=== PATIENT | female | born 1960 | race Caucasian/White ===

== ENCOUNTER 2017-08-03 14:33 | Emergency (ER) | payer OTHER ==
[2017-08-03 14:34] VITALS: BMI 32.3
[2017-08-03] MEDS ORDERED: Sodium Chloride 0.9% 1,000 ML IV ONE (15:53)
[2017-08-03] MEDS ORDERED: Sodium Chloride 0.9% 1,000 ML ONE (16:13)
[2017-08-03 16:34] LABS: BASO % 0.4 % (0.0-2.0); EOS # 0.1 K/uL (0.0-0.7); EOS % 0.6 % (0.0-4.0); HEMATOCRIT 42.4 % (34.0-47.0); LYMPH # 1.8 K/uL (1.0-4.3); LYMPH % 20.5 % (20.0-40.0); MEAN CELL VOLUME 77.1 fL (81.0-99.0); MEAN CORPUSCULAR HEMOGLOBIN 25.2 pg (27.0-31.0); MEAN CORPUSCULAR HGB CONC 32.6 g/dL (33.0-37.0); MEAN PLATELET VOLUME 8.2 fL (7.2-11.7); MONO # 0.7 K/uL (0.0-0.8); MONO % 8.1 % (0.0-10.0); RED CELL DISTRIBUTION WIDTH 15.1 % (11.5-14.5); WHITE BLOOD COUNT 8.8 K/uL (4.8-10.8)
[2017-08-03 16:39] LABS: CHLORIDE 100 mmol/L (98-107)
[2017-08-03 16:40] LABS: POTASSIUM 3.2 mmol/L (3.6-5.2); SODIUM 137 mmol/L (132-148)
[2017-08-03 16:43] LABS: ALB/GLOB RATIO 1.3 (1.0-2.1); ALKALINE PHOSPHATASE 93 U/L (38-126); ALT/SGPT 38 U/L (9-52); AST/SGOT 22 U/L (14-36); BILIRUBIN,TOTAL 0.7 mg/dL (0.2-1.3); BLOOD UREA NITROGEN 11 mg/dL (7-17); CARBON DIOXIDE 26 mmol/L (22-30); GFR AFRICAN-AMERICAN > 60; GLUCOSE,RANDOM 79 mg/dL (65-105); TOTAL PROTEIN 7.7 g/dL (6.3-8.3)
[2017-08-03 16:44] LABS: CALCIUM 8.8 mg/dl (8.6-10.4)
[2017-08-03 16:55] LABS: RBC URINE 1 /hpf (0-3); URINE BILIRUBIN NEGATIVE (NEGATIVE); URINE BLOOD NEGATIVE (NEGATIVE); URINE COLOR Straw (YELLOW); URINE GLUCOSE (UA) NORMAL (Normal); URINE KETONE NEGATIVE (NEGATIVE); URINE LEUKOCYTE ESTERASE TRACE Leu/uL (Negative); URINE PROTEIN NEGATIVE (NEGATIVE); URINE UROBILINOGEN NORMAL mg/dL (0.2-1.0); WBC URINE 2 /hpf (0-5)
--- NOTE | 2017-08-03 17:20 | C.PDOC ---
History Of Present Illness 56 y/o female presents to ED with complaints of productive cough for the past 2 weeks. Patient was seen by PMD, Dr. Nicole, for same symptoms and was prescribed cough medication. Patient has been using med (doesn't know name) without improvement. Pt also complaints of suprapubic and LLQ abdominal pain that developed today. Otherwise, she denies chest pain, shortness of breath, vomiting, diarrhea, dysuria, hematuria, vaginal discharge, vaginal bleeding, or fever. Time Seen by Provider: 08/03/17 15:38 Chief Complaint (Nursing): Abdominal Pain History Per: Patient History/Exam Limitations: no limitations Onset/Duration Of Symptoms: Days (2 weeks) Current Symptoms Are (Timing): Still Present Severity: Mild Location Of Pain/Discomfort: LLQ, Suprapubic Radiation Of Pain To:: None Quality Of Discomfort: "Pain" Associated Symptoms: denies: Loss Of Appetite, Back Pain, Chest Pain, Constipation, Urinary Symptoms Exacerbating Factors: None Alleviating Factors: None Additional History Per: Patient Abnormal Vaginal Bleeding: No Past Medical History Reviewed: Historical Data, Nursing Documentation, Vital Signs Vital Signs: Last Vital Signs Temp 97 F L 08/03/17 17:53 Pulse 68 08/03/17 17:53 Resp 18 08/03/17 17:53 BP 151/86 H 08/03/17 17:53 Pulse Ox 98 08/03/17 18:50 - Medical History PMH: HTN Surgical History: No Surg Hx - [facility] Procedures CORONAR ARTERIOGR-2 CATH (02/25/14) LEFT HEART CARDIAC CATH (02/25/14) LT HEART ANGIOCARDIOGRAM (02/25/14) Family History: States: No Known Family Hx - Social History Hx Tobacco Use: No Hx Alcohol Use: No Hx Substance Use: No - Immunization History Hx Tetanus Toxoid Vaccination: No Hx Influenza Vaccination: Yes Hx Pneumococcal Vaccination: No Review Of Systems Except As Marked, All Systems Reviewed And Found Negative. Constitutional: Negative for: Fever, Chills Cardiovascular: Negative for: Chest Pain, Palpitations, Light Headedness Respiratory: Positive for: Cough. Negative for: Shortness of Breath, Hemoptysis , Sputum Gastrointestinal: Positive for: Abdominal Pain. Negative for: Nausea, Vomiting , Diarrhea, Constipation Genitourinary: Negative for: Dysuria, Frequency, Hematuria, Vaginal Discharge, Vaginal Bleeding Musculoskeletal: Negative for: Back Pain Physical Exam - Physical Exam Appears: Well, Non-toxic, No Acute Distress Skin: Normal Color, Warm, Dry Eye(s): bilateral: Normal Inspection Oral Mucosa: Moist Neck: Supple Cardiovascular: Rhythm Regular, No Murmur Respiratory: Normal Breath Sounds, No Rales, No Rhonchi, No Wheezing Gastrointestinal/Abdominal: Bowel Sounds, Soft, Tenderness (mild suprapubic and LLQ TTP), No Guarding, No Rebound, Other ((-) McBurney's) Back: Normal Inspection, No CVA Tenderness Extremity: Normal ROM Neurological/Psych: Oriented x3 ED Course And Treatment - Laboratory Results Result Diagrams: 08/03/17 16:26 08/03/17 16:26 O2 Sat by Pulse Oximetry: 98 (RA) Pulse Ox Interpretation: Normal - Radiology CXR: Interpreted by Me, Viewed By Me CXR Interpretation: Yes: No Acute Disease. No: Infiltrates Progress Note: Blood work, UA, CXR ordered and reviewed. Patient given IV NS bolus. Reevaluation Time: 17:20 Reassessment Condition: Improved (On reassessment, patient is resting comfortably and states she feels better. On exam, abdomen is soft and nontender. Blood work unremakrable except for mild hypokalemia, UA (-). Patient is well appearing and comfortable being discharged home. She was instructed to follow up with PMD in 1-2 days, and understands she should return to ED if symptoms worsen.) Disposition Counseled Patient/Family Regarding: Studies Performed, Diagnosis, Need For Followup - Disposition Referrals: Yudith Nicole MD [Staff Provider] - Disposition: HOME/ ROUTINE Disposition Time: 17:30 Condition: STABLE Additional Instructions: FOLLOW UP WITH YOUR DOCTOR IN 1-2 DAYS RETURN TO ER IMMEDIATELY IF SYMPTOMS WORSEN Instructions: Upper Respiratory Infection (ED), Viral Syndrome (ED) Forms: [employer] (Czech) Print Language: NIGERIEN - POA Present On Arrival: None - Clinical Impression Clinical Impression: Viral upper respiratory illness, Abdominal pain - Scribe Statement The provider has reviewed the documentation as recorded by the Scribe Jess Ambrose All medical record entries made by the Scribe were at my direction and personally dictated by me. I have reviewed the chart and agree that the record accurately reflects my personal performance of the history, physical exam, medical decision making, and the department course for this patient. I have also personally directed, reviewed, and agree with the discharge instructions and disposition.
--- NOTE | 2017-08-03 17:25 | RAD ---
PROCEDURE: CHEST RADIOGRAPH, 1 VIEW HISTORY: Shortness of breath COMPARISON: None available. FINDINGS: LUNGS: Mild venous congestion. PLEURA: No pneumothorax or pleural fluid seen. CARDIOVASCULAR: Normal. OSSEOUS STRUCTURES: No significant abnormalities. VISUALIZED UPPER ABDOMEN: Normal. OTHER FINDINGS: None. IMPRESSION: Mild venous congestion.
[2017-08-03 17:54] VITALS: BP 151/86; PULSE 68; RESP 18; TEMP 97
[2017-08-03 18:48] VITALS: O2SAT 98
== END 2017-08-03 17:55 | disposition home or self-care (01) ==
LOC: C.ER 14:33
DX: R10.32 Left lower quadrant pain (principal); B34.9 Viral infection, unspecified
CPT/HCPCS: 71010; 80053; 81001; 83690; 85025; 96360; 99284; J7040